=== PATIENT | female | born 1970 | race Two or more races ===

== ENCOUNTER 2021-10-10 19:09 | Emergency (ER) | payer OTHER ==
[~2021-10-10] VITALS: Ht 170.2 cm; Wt 76.2 kg
[2021-10-10] MEDS ORDERED: COZAAR100 MG PO (19:40)
[2021-10-10] MEDS ORDERED: DICLOFENAC SODI75 MG PO (22:30)
== END 2021-10-10 22:37 | disposition home or self-care (01) ==
LOC: ER 19:09
DX: M54.9 Dorsalgia, unspecified (principal); I10 Essential (primary) hypertension

== ENCOUNTER 2022-01-16 10:16 | Emergency (ER) | payer OTHER ==
[~2022-01-16] VITALS: Ht 170.2 cm; Wt 76.2 kg
[~2022-01-16 10:16] MED LIST: COZAAR100 MG PO; DICLOFENAC SODI75 MG PO
== END 2022-01-16 15:38 | disposition home or self-care (01) ==
LOC: ER 10:16
DX: R42 Dizziness and giddiness (principal); R10.13 Epigastric pain; I10 Essential (primary) hypertension; Z20.822 Contact with and (suspected) exposure to COVID-19